=== PATIENT | male | born 1960 | race Caucasian/White ===

== ENCOUNTER 2018-09-04 06:05 | Inpatient (IN) | payer OTHER ==
[2018-08-20 12:04] VITALS: BMI 38.7
[2018-09-04] MEDS ORDERED: ONDANSETRON 4 MG/2 ML VIAL ONE (07:11)
[2018-09-04] MEDS ORDERED: DEXAMETHASONE SOD PHOSPHATE 4 MG/1 ML VIAL ONE (07:11)
[2018-09-04] MEDS ORDERED: ceFAZolin SODIUM 1 GM VIAL ONE (07:11)
[2018-09-04] MEDS ORDERED: TRANEXAMIC ACID 1000 MG/10 ML VIAL ONE (07:11)
[2018-09-04] MEDS ORDERED: SODIUM CHLORIDE 0.9% P/F 10 ML VIAL IJ ONE (07:11)
[2018-09-04] MEDS ORDERED: oxyCODONE HCL 10 MG SUSTAINED ACTING TABLET ONE (07:14)
[2018-09-04] MEDS ORDERED: GABAPENTIN 300 MG CAPSULE (FP) ONE (07:15)
[2018-09-04] MEDS ORDERED: CELECOXIB 200 MG CAPSULE ONE (07:15)
[2018-09-04] MEDS ORDERED: DEXMEDETOMIDINE HCL 200 MCG/2 ML IVPB ONE (07:27)
[2018-09-04] MEDS ORDERED: MIDAZOLAM HCL 2 MG/2 ML SINGLE DOSE VIAL ONE ×2 (07:27→08:29)
[2018-09-04] MEDS ORDERED: DEXAMETHASONE SOD PHOSPHATE/PF 10 MG/ML SDV ONE (07:29)
[2018-09-04] MEDS ORDERED: LIDOCAINE HCL/PF 2% SDV 5ML VIAL ONE (07:32)
--- NOTE | 2018-09-04 07:53 | HP ---
Satellite [facility] - Chief Complaint Chief Complaint: left hip pain - Past Medical History Allergies/Adverse Reactions: Allergies Allergy/AdvReac Type Severity Reaction Status Date / Time No Known Allergies Allergy Verified 08/23/18 12:04 - Current Medications Current Medications: Home Medications Medication Instructions Recorded Biotin 10,000 mcg PO DAILY 08/23/18 Fenofibrate,Micronized 134 mg PO DAILY 08/23/18 [Fenofibrate] Lisinopril [Prinivil -] 40 mg PO DAILY 08/23/18 Multivitamin/Iron/Folic Acid 1 each PO DAILY 08/23/18 [Centrum Adults Tablet] Satellite Physical Exam - Physical Examination Vital Signs: Vital Signs Period Temp Pulse Resp BP Sys/Davis Pulse Ox Last 24 Hr 97.7 F-97.7 F 79-79 18-18 152-152/75-75 General Appearance: Well Nourished, Well Developed, Alert & Oriented x3 ENT: Clear Lung: Normal air movement Heart: Regular rate & rhythm Extremities: Other (left hip- + ttp, decr rom, nvi xrays show grade 4 hip djd) Neurological: Intact, Alert, Oriented Satellite Impression/Plan - Impression/Plan Impression: left hip djd Operative Procedure: left jose thr Date to be Performed: 09/04/18
[2018-09-04] MEDS ORDERED: MAG HYDROX/AL HYDROX/SIMETH 30 ML UNIT-DOSE CUP PO PRN (09:57)
[2018-09-04] MEDS ORDERED: ONDANSETRON 4 MG/2 ML VIAL IVPUSH PRN (09:57)
[2018-09-04] MEDS ORDERED: MAGNESIUM HYDROX 2400MG/30ML ORAL SUSPENSION 30 ML CUP PO PRN (09:57)
--- NOTE | 2018-09-04 09:59 | OP ---
Operative Note - Note: Operative Date: 09/04/18 (dano) Pre-Operative Diagnosis: right hip djd Operation: right jose thr Post-Operative Diagnosis: Same as Pre-op Surgeon: Newton Lara Stitchdown Thread Laster: Nikolas Lewis) Anesthesiologist/HOUSE CARPENTER HELPER: Epi Zamarripa Anesthesia: Spinal, Local Specimens Removed: femoral head Estimated Blood Loss (mls): 100 Operative Report Dictated: Yes
[2018-09-04] MEDS ORDERED: PATIENT'S OWN MEDICATION (NON-FORMULARY) (Lisinopril [Prinivil -] 40 MG) PO SCH (10:00)
[2018-09-04] MEDS ORDERED: PATIENT'S OWN MEDICATION (NON-FORMULARY) (Multivitamin/Iron/Folic Acid [Centrum Adults Tab PO SCH (10:00)
[2018-09-04] MEDS ORDERED: LACTATED RINGERS SOLUTION 1,000 ML IV SCH (10:00)
[2018-09-04] MEDS ORDERED: PATIENT'S OWN MEDICATION (NON-FORMULARY) (Fenofibrate,Micronized [Fenofibrate] 134 MG) PO SCH (10:00)
[2018-09-04] MEDS ORDERED: oxyCODONE HCL 5 MG TABLET PO PRN (10:32)
[2018-09-04] MEDS ORDERED: ACETAMINOPHEN 325 MG TABLET (FP) PO SCH (10:45)
[2018-09-04] MEDS: PANTOPRAZOLE 40 MG TABLET (FP) PO SCH (12:20)
[2018-09-04] MEDS: MULTIVITAMINS (DAILY MVI) TABLET (FP) PO SCH (12:20)
[2018-09-04] MEDS: oxyCODONE HCL 5 MG TABLET PO PRN ×2 (13:13→21:19)
--- NOTE | 2018-09-04 14:05 | OP ---
DATE OF OPERATION: 09/04/2018 PREOPERATIVE DIAGNOSIS: Degenerative joint disease left hip. POSTOPERATIVE DIAGNOSIS: Degenerative joint disease left hip. PROCEDURE PERFORMED: Left total hip replacement with robotic-assisted navigation (MAKOplasty). SURGICAL ATTENDING: Newton Lara MD PARKING LOT SPOTTER: MARINO Love SECOND EXTENSION FORESTER: Antonio Shane MD ANESTHESIA: Regional and spinal. CLOSURE: A 56-mm Trident II PressFit acetabulum and number 7 Accolade 2 PressFit femoral stem and a ceramic 36 mm +2.5 length femoral head. Number 1 Vicryl for fascia, 0 and 2-0 subcutaneous, 3-0 V-Loc for skin with skin glue, 4-0 undyed Vicryl for pin sites. ESTIMATED BLOOD LOSS: Less than 100 mL. COMPLICATIONS: None. CONDITION: To the recovery room in stable condition. DESCRIPTION OF PROCEDURE: The patient was taken to the operating room on September 04, 2018. General and regional anesthesia was administered by the anesthesiologist. IV Kefzol and TXA were administered prophylactically prior to the case. The patient was placed in the lateral decubitus position will all prominences well-padded. The left hip area was prepped and draped in the usual sterile fashion. Using 3 small stab incisions over the iliac crest, 3 threaded pins were drilled in power fashion through the 2 tables of the crest. These pins were fastened and the navigation array for the Facundo navigation system. Next, a 12 to 15-cm curved longitudinal incision over the posterolateral aspect of the greater trochanter was incised. Hemostasis was achieved with Bovie cautery. Sharp dissection was carried down to level of the fascia. The fascia was opened the entire length of the incision, spreading the fibers of the gluteus guille in the direction of origin. A Charnley retractor was placed in this layer. Care was taken not to impale the sciatic nerve. The short external rotators were detached off the insertion of the greater trochanter and peeled off the capsule. A posterior capsulotomy was then performed. A check point was malleted into the greater trochanter and a point on the inferior pole of the patella was obtained as well. These 2 points were used to assess the preoperative offset and limb lengths of the hip. The hip was then dislocated. The femoral neck was then osteotomized down to the appropriate level as directed by the navigation device. Anterior and posterior retractors were placed, exposing the acetabulum. A circumferential labral excision was performed. A check point was malleted into the acetabulum as well. Multiple sites inside the acetabulum and around the rim were utilized to register the acetabulum with the navigation device. An excellent registration of less than 0.5 mm was obtained. The hip was then reamed with the appropriate reamer down to the appropriate depth, with the appropriate orientation and version as assessed on our preoperative plan for this patient. The reamer was removed and the acetabulum was inspected to have good bleeding surfaces throughout. The real acetabular cup was then malleted down into place, with the holes in the appropriate position, until an excellent fixation was obtained. No screws were necessary. The navigation device ensured appropriate orientation and version, with the depth as predetermined. The appropriate liner was then clipped into place. Attention was directed to the femur. The proximal femur was prepared by use a box chisel, a canal finder and serial broaches until the broach achieved excellent rigidity in the proximal femur with the appropriate version being applied. A calcar planer was used to smooth off the calcar flush with the trial components. A trial reduction with the appropriate head was done, and the hip was reduced. The hip was taken through a range of motion from full extension with external rotation to marked flexion, and was stable at 90 degrees of flexion. It was stable to marked abduction and internal rotation, with a positive hang test and negative telescoping. Limb lengths were ascertained visually as well as with the navigation device to be within the targeted range for this patient. The trial component was removed. The real component was then malleted into place. The head was cold welded to the trunnion, and the hip was reduced. Range of motion, stability and limb lengths were as described in the trial component. Then the hip was pulse antibiotic irrigated. Vancomycin powder was placed in the hip joint. The capsule was closed. The fascia was then closed as well using number 1 Vicryl interrupted suture, 0 and 2-0 subcutaneous, and 3-0 V-Loc for the skin. 4-0 undyed Vicryl was used to close the pin sites after the pins were removed. All check points were also removed. Sterile Aquacel dressing was applied. The patient was awakened from anesthesia and transferred into the supine position. Bilateral SCDs and an abduction pillow were placed. X-rays revealed excellent position of the components. The patient was transferred to the recovery room in stable condition, with no complications. Estimated blood loss was less than 100 mL. Nona CARROLL/[id number]
[2018-09-04] MEDS: CEFAZOLIN 2 GM/D5W 2 GM/50 ML ML IVPB SCH ×2 (15:55→23:30)
[2018-09-04] MEDS: HYDROmorphone HCL CARPU-JECT 1 MG/1 ML DISP.SYRIN IVPUSH PRN (17:00)
[2018-09-04] MEDS: ACETAMINOPHEN 325 MG TABLET (FP) PO SCH ×2 (17:53→23:30)
[2018-09-04] MEDS: SENNOSIDES/DOCUSATE COMBO (SENNA PLUS) TABLET (UD) PO SCH (21:19)
[2018-09-05] MEDS: oxyCODONE HCL 5 MG TABLET PO PRN ×5 (02:42→21:20)
[2018-09-05] MEDS: HYDROmorphone HCL CARPU-JECT 1 MG/1 ML DISP.SYRIN IVPUSH PRN (03:15)
[2018-09-05] MEDS: ACETAMINOPHEN 325 MG TABLET (FP) PO SCH ×3 (05:00→18:23)
[2018-09-05 08:02] LABS: HEMATOCRIT 33.1 % (35.4-49); HEMOGLOBIN 11.2 GM/dl (11.7-16.9); MCH 29.9 pg (25.7-33.7); MCHC 33.8 g/dl (32.0-35.9); MEAN CELL VOLUME 88.6 fl (80-96); MEAN PLT VOLUME 9.2 fl (7.5-11.1); PLATELET COUNT 191 K/MM3 (134-434); RBC 3.73 M/mm3 (4.00-5.60); RDW 12.8 % (11.9-15.9); WHITE BLOOD COUNT 11.4 K/mm3 (4.0-10.8)
--- NOTE | 2018-09-05 08:24 | PN ---
Progress Note (short form) - Note Progress Note: Ortho Pt seen and examined s/p left jose thr pod #1 Selected Entries 09/05/18 06:00 Temperature 97.7 F Pulse Rate 74 Respiratory 20 Rate Blood Pressure 110/50 L Laboratory Tests 09/05/18 07:05 WBC Pending Hgb Pending Hct Pending Plt Count Pending dressing c/d/i, calf soft, nt nvi a/p PT hip precautions dvt ppx pain control d/c home tomorrow if stable
[2018-09-05] MEDS: LISINOPRIL 20 MG TABLET (FP) PO SCH (09:32)
[2018-09-05] MEDS: FENOFIBRIC ACID 135 MG CAP PO SCH (09:32)
[2018-09-05] MEDS: SENNOSIDES/DOCUSATE COMBO (SENNA PLUS) TABLET (UD) PO SCH ×2 (09:32→21:19)
[2018-09-05] MEDS: ASPIRIN 325 MG TABLET PO SCH (09:32)
[2018-09-05] MEDS: MULTIVITAMINS (DAILY MVI) TABLET (FP) PO SCH (09:32)
[2018-09-05] MEDS: PANTOPRAZOLE 40 MG TABLET (FP) PO SCH (09:32)
--- NOTE | 2018-09-05 11:12 | PN ---
Progress Note (short form) - Note Progress Note: Anesthesiology Post-op/Pain Service 57 y.o. man POD#1 s/p Left YUKI hip replacement with nerve blocks and spinal anesthesia. Pt. is awake, walking with PT with minimal difficulty using a walker. He states that he has 9/10 pain but is moving freely without stopping. No anesthesia- related issues. VSS. PO pain meds available. 57 y.o. man with stable post-operative course. Continue management per primary team.
[2018-09-06] MEDS: ACETAMINOPHEN 325 MG TABLET (FP) PO SCH ×3 (01:09→11:02)
[2018-09-06] MEDS: oxyCODONE HCL 5 MG TABLET PO PRN ×4 (01:18→16:32)
[2018-09-06] MEDS: ASPIRIN 325 MG TABLET PO SCH (08:01)
[2018-09-06 08:07] LABS: HEMATOCRIT 30.7 % (35.4-49); HEMOGLOBIN 9.8 GM/dl (11.7-16.9); MCH 28.3 pg (25.7-33.7); MEAN CELL VOLUME 88.6 fl (80-96); MEAN PLT VOLUME 9.4 fl (7.5-11.1); PLATELET COUNT 157 K/MM3 (134-434); RBC 3.46 M/mm3 (4.00-5.60); RDW 13.1 % (11.9-15.9); WHITE BLOOD COUNT 9.6 K/mm3 (4.0-10.8)
--- NOTE | 2018-09-06 08:26 | PN ---
Progress Note (short form) - Note Progress Note: Ortho Pt seen and examined s/p left jose thr pod #2 Selected Entries 09/06/18 06:00 Temperature 99.0 F Pulse Rate 91 H Respiratory 20 Rate Blood Pressure 129/60 Laboratory Tests 09/06/18 07:20 WBC Pending Hgb Pending Hct Pending Plt Count Pending dressing c/d/i, calf soft, nt nvi a/p PT hip precautions dvt ppx pain control d/c home today f/u in 1 week
--- NOTE | 2018-09-06 08:26 | DS ---
Physical Examination Vital Signs: Vital Signs Temperature 99.0 F 09/06/18 06:00 Pulse Rate 91 H 09/06/18 06:00 Respiratory Rate 20 09/06/18 06:00 Blood Pressure 129/60 09/06/18 06:00 O2 Sat by Pulse Oximetry (%) 99 09/06/18 06:00 Discharge Summary Reason For Visit: OSTEOARTHRITIS Procedures: Principal: left thr Hospital Course: admitted for elective left jose thr, uneventful post-op, stable for d/c Condition: Good - Instructions Diet, Activity, Other Instructions: Post-op Instructions-Total Hip Replacement Call the office for a follow-up appointment in 1 week - [phone] Aspirin 325mg daily for 6 weeks. Pain medication was sent into your pharmacy. Apply Graduated Compression Stockings (TEDs) to both lower extremities- remove daily for hygiene ONLY Apply Sequential Compression Device (SCDs) to both Lower extremities remove for PT and hygiene ONLY Apply cold packs to affected area for 15 minutes every 2 hours. Physical Therapist will come to your home for the first 5 days. You will be set up with outpatient PT at your first post-operative visit. Patient may ambulate as tolerated-encourage self care (at least every 2-3 hours while awake) with walker or cane Maintain Aquacel (waterproof) dressing to operative wound (will be removed by surgeon at first office visit) Shower with Aquacel dressing in place-if Aquacel integrity compromised, remove and apply dry sterile dressing and notify Orthopedist. DO NOT SHOWER unless Orthopedists approves without Aquacel dressing CONTACT THE OFFICE FOR ANY CHANGE IN YOUR CONDITION (for example-fever greater than 102 degrees, excessive bleeding from operative site, purulent drainage, severe swelling or pain) GO TO THE EMERGENCY ROOM IF THERE IS A MEDICAL EMERGENCY Hip Precautions: * Keep a rolled towel under affected heel while in bed or chair (to keep knee in extension) * Dependent upon approach: * Posterior - do not cross legs; do not sit on low chairs or toilets. * If you have any questions, please do not hesitate to call the office - . Referrals: Antonio Shane MD [Staff Physician] - Disposition: VNS/HOME HEALTH CARE - Home Medications Comprehensive Discharge Medication List: Ambulatory Orders Biotin 10,000 mcg PO DAILY 08/23/18 Fenofibrate,Micronized [Fenofibrate] 134 mg PO DAILY 08/23/18 Lisinopril [Prinivil -] 40 mg PO DAILY 08/23/18 Multivitamin/Iron/Folic Acid [Centrum Adults Tablet] 1 each PO DAILY 08/23/18 Aspirin [ASA -] 325 mg PO DAILY@0800 tablet 09/04/18 Oxycodone HCl/Acetaminophen [Percocet 5-325 mg Tablet -] 1 - 2 tab PO Q6H #50 tab MDD 8 09/04/18
[2018-09-06] MEDS: SENNOSIDES/DOCUSATE COMBO (SENNA PLUS) TABLET (UD) PO SCH (09:09)
[2018-09-06] MEDS: LISINOPRIL 20 MG TABLET (FP) PO SCH (09:09)
[2018-09-06] MEDS: PANTOPRAZOLE 40 MG TABLET (FP) PO SCH (09:09)
[2018-09-06] MEDS: FENOFIBRIC ACID 135 MG CAP PO SCH (09:09)
[2018-09-06] MEDS: MULTIVITAMINS (DAILY MVI) TABLET (FP) PO SCH (09:09)
[2018-09-06 11:24] LABS: PH,URINE 5.5 (4.5-8); URINE APPEARANCE Cloudy; URINE BILIRUBIN Negative (NEGATIVE); URINE COLOR Brown; URINE GLUCOSE (UA) Negative (NEGATIVE); URINE KETONE Negative (NEGATIVE); URINE LEUK ESTERASE Negative (NEGATIVE); URINE NITRITE Negative (NEGATIVE); URINE PROTEIN Negative (NEGATIVE); URINE UROBILINOGEN 0.2 (0.2-1.0)
[2018-09-06 11:32] LABS: URINE RBC >100 /hpf (0-3)
[2018-09-06 16:05] VITALS: BP 130/57; PULSE 90; TEMP 99.4
--- NOTE | 2018-09-10 12:43 | PATH ---
Surgical Pathology Report Patient Name: DELIO GARCIA Med. Rec. #: [id number] /Age/Gender: 1960 (Age: 57) / M Account: [id number] Location: [facility] Taken: 09/04/2018 Received: 09/04/2018 Reported: 09/10/2018 Physicians: Newton Lara M.D. Specimen(s) Received LEFT FEMORAL HEAD Clinical History Left hip osteoarthritis Final Diagnosis FEMORAL HEAD, LEFT, TOTAL HIP REPLACEMENT: DEGENERATIVE JOINT DISEASE. Electronically Signed Mary Kay Brambila M.D. Gross Description Received in formalin, labeled "left femoral head," is a 4.8 x 4.8 x 4.3 cm. femoral head with a 1.1 cm in length portion of femoral neck attached. The margin of resection is smooth. There is a 4.2 cm greatest dimension area of eburnation present. The remaining articular surface is oshea-yellow and diffusely nodular and granular. The underlying trabecular bone is yellow and hard. A off premise service representative section is submitted in one cassette, following decalcification. /09/05/2018 [facility]09/05/2018
== END 2018-09-06 18:00 | disposition home health service (06) | DRG 470 ==
LOC: FM/S 06:05
PROVIDERS: ADMIT Orthopaedic Surgery; ATTEND Orthopaedic Surgery
PROC: 8E0W0CZ Robotic Assisted Procedure of Trunk Region, Open Approach (ICD-10-PCS; 2018-09-04)
PROC: 0SRB03A Replacement of Left Hip Joint with Ceramic Synthetic Substitute, Uncemented, Open Approach (ICD-10-PCS; principal; 2018-09-04 08:40)
DX: M16.12 Unilateral primary osteoarthritis, left hip (principal)
CPT/HCPCS: 36415; 73502-TC-LT-FY; 81003; 81015; 85027; 88304-TC; 88311-TC; 94660; 94760; 97116-GP; 97162-GP